=== PATIENT | female | born 1935 | race Caucasian/White ===

== ENCOUNTER 2022-05-22 17:56 | Inpatient (IN) | payer OTHER, MEDICARE ==
[2022-05-22 20:10] LABS: BASO % 0.6 % (0-2.0); EOS % 1.1 % (0-4.5); HEMATOCRIT 42.9 % (32.4-45.2); HEMOGLOBIN 13.8 GM/dL (10.7-15.3); LYMPH % 16.2 % (8-40); MCH 28.8 pg (25.7-33.7); MCHC 32.1 g/dl (32.0-36.0); MEAN CELL VOLUME 89.7 fl (80-96); MEAN PLT VOLUME 9.3 fl (7.5-11.1); MONO % 6.1 % (3.8-10.2); PLATELET COUNT 241 10^3/uL (134-434); RBC 4.78 M/mm3 (3.60-5.2); RDW 13.8 % (11.6-15.6); WHITE BLOOD COUNT 7.8 K/mm3 (4.0-10.0)
[2022-05-22 20:29] LABS: CALCIUM 9.4 mg/dL (8.5-10.1)
[2022-05-22 20:30] LABS: ALBUMIN 3.5 g/dl (3.4-5.0)
[2022-05-22 20:33] LABS: CREATININE 0.7 mg/dL (0.55-1.3)
[2022-05-22 20:35] LABS: BILIRUBIN,TOTAL 0.3 mg/dL (0.2-1); TOT PROT 6.8 g/dl (6.4-8.2)
[2022-05-22] MEDS ORDERED: HALOPERIDOL LACTATE 5 MG/ML IM ONE ×2 (23:38→23:57)
[2022-05-22] MEDS ORDERED: LOSARTAN POTASSIUM 50 MG TABLET PO PRN ×2 (23:41→23:45)
[2022-05-22] MEDS ORDERED: LOSARTAN POTASSIUM 50 MG TABLET PO SCH (23:44)
[2022-05-22] MEDS ORDERED: PANTOPRAZOLE 40 MG TABLET PO ONE (23:57)
[2022-05-22] MEDS ORDERED: ENOXAPARIN NA (PORCINE) 40 MG/0.4 ML DISP.SYRIN SQ ONE (23:57)
[2022-05-22 23:58] LABS: URINE APPEARANCE CLEAR; URINE BILIRUBIN NEGATIVE (NEGATIVE); URINE COLOR YELLOW; URINE GLUCOSE (UA) NEGATIVE (NEGATIVE); URINE KETONE TRACE (NEGATIVE); URINE LEUK ESTERASE NEGATIVE (NEGATIVE); URINE NITRITE NEGATIVE (NEGATIVE); URINE PROTEIN NEGATIVE (NEGATIVE); URINE UROBILINOGEN 0.2 mg/dL (0.2-1.0)
[2022-05-23] MEDS: PANTOPRAZOLE 40 MG TABLET PO SCH ×2 (00:10→09:41)
[2022-05-23] MEDS: ENOXAPARIN NA (PORCINE) 40 MG/0.4 ML DISP.SYRIN SQ SCH ×2 (00:11→09:40)
[2022-05-23 04:59] VITALS: BMI 24.4
[2022-05-23] MEDS: LOSARTAN POTASSIUM 50 MG TABLET PO SCH ×2 (09:35→22:07)
[2022-05-23] MEDS: amLODIPine BESYLATE 10 MG TABLET (FP) PO SCH (09:38)
[2022-05-23] MEDS ORDERED: amLODIPine BESYLATE 5 MG TABLET (FP) PO SCH (10:00)
[2022-05-23] MEDS ORDERED: LOSARTAN POTASSIUM 50 MG TABLET PO SCH (10:00)
[2022-05-23] MEDS: LORazepam 2 MG/ML SDV VIAL IVPUSH PRN ×2 (10:45→22:06)
[2022-05-23 15:48] VITALS: RESP 20
[2022-05-23] MEDS ORDERED: DOCUSATE SODIUM 100 MG CAPSULE (FP) PO SCH (22:00)
[2022-05-24 11:01] LABS: BASO % 0.6 % (0-2.0); EOS % 1.8 % (0-4.5); HEMATOCRIT 42.3 % (32.4-45.2); HEMOGLOBIN 13.8 GM/dL (10.7-15.3); LYMPH % 20.3 % (8-40); MCHC 32.5 g/dl (32.0-36.0); MEAN CELL VOLUME 89.1 fl (80-96); MEAN PLT VOLUME 9.4 fl (7.5-11.1); MONO % 10.1 % (3.8-10.2); NEUT % 67.2 % (42.8-82.8); PLATELET COUNT 258 10^3/uL (134-434); RBC 4.75 M/mm3 (3.60-5.2); RDW 13.7 % (11.6-15.6); WHITE BLOOD COUNT 6.3 K/mm3 (4.0-10.0)
[2022-05-24 11:23] LABS: CALCIUM 9.4 mg/dL (8.5-10.1)
[2022-05-24 11:27] LABS: CREATININE 0.6 mg/dL (0.55-1.3)
[2022-05-24] MEDS: PANTOPRAZOLE 40 MG TABLET PO SCH (12:22)
[2022-05-24] MEDS: amLODIPine BESYLATE 10 MG TABLET (FP) PO SCH (12:22)
[2022-05-24] MEDS: LOSARTAN POTASSIUM 50 MG TABLET PO SCH (12:22)
[2022-05-24] MEDS: ENOXAPARIN NA (PORCINE) 40 MG/0.4 ML DISP.SYRIN SQ SCH (12:22)
[2022-05-24 14:18] VITALS: BP 133/77; PULSE 63; TEMP 97.8
== END 2022-05-24 14:51 | disposition home or self-care (01) | DRG 305 ==
LOC: JER 17:56 → JERBED 23:41 → J8W 05-23 03:24
PROVIDERS: ADMIT Internal Medicine; ATTEND Internal Medicine
DX: I16.0 Hypertensive urgency (principal); F03.90 Unspecified dementia, unspecified severity, without behavioral disturbance, psychotic disturbance, mood disturbance, and anxiety; R26.9 Unspecified abnormalities of gait and mobility; M62.81 Muscle weakness (generalized); R79.89 Other specified abnormal findings of blood chemistry; R42 Dizziness and giddiness; I44.0 Atrioventricular block, first degree; Z86.73 Personal history of transient ischemic attack (TIA), and cerebral infarction without residual deficits
CPT/HCPCS: 0241U-QW; 36415; 70450-TC; 80048; 80053; 81003; 84484; 85025; 87086; 93005; 93010; 97116-GP; 99285-25

== ENCOUNTER 2023-03-04 19:00 | Inpatient (IN) | payer OTHER, MEDICARE ==
[2023-03-04 20:28] LABS: BASO % 0.8 % (0-2.0); EOS % 1.8 % (0-4.5); HEMATOCRIT 40.7 % (32.4-45.2); HEMOGLOBIN 13.6 GM/dL (10.7-15.3); LYMPH % 18.9 % (8-40); MCH 29.4 pg (25.7-33.7); MCHC 33.4 g/dl (32.0-36.0); MEAN CELL VOLUME 87.9 fl (80-96); MEAN PLT VOLUME 9.1 fl (7.5-11.1); MONO % 10.2 % (3.8-10.2); NEUT % 68.3 % (42.8-82.8); PLATELET COUNT 255 10^3/uL (134-434); RBC 4.63 M/mm3 (3.60-5.2); RDW 15.1 % (11.6-15.6); WHITE BLOOD COUNT 6.8 K/mm3 (4.0-10.0)
[2023-03-04 20:36] LABS: INR 1.15 (0.83-1.09); PROTHROMBIN TIME (PATIENT) 13.3 SEC (9.7-13.0)
[2023-03-04 21:00] LABS: POTASSIUM 4.8 mmol/L (3.5-5.1)
[2023-03-04 21:03] LABS: ALBUMIN 3.1 g/dl (3.4-5.0); BLOOD UREA NITROGEN 18.9 mg/dL (7-18); CALCIUM 8.8 mg/dL (8.5-10.1); MAGNESIUM 2.1 mg/dL (1.8-2.4)
[2023-03-04 21:06] LABS: CREATININE 0.7 mg/dL (0.55-1.3)
[2023-03-04 21:08] LABS: BILIRUBIN,TOTAL 0.2 mg/dL (0.2-1); TOT PROT 6.3 g/dl (6.4-8.2)
[2023-03-04] MEDS ORDERED: SODIUM CHLORIDE 0.9% 500 ML INFUS.BAG IV ONE (21:41)
[2023-03-04 22:52] LABS: EPI CELLS 5 /uL (0-25.1); HYALINE CASTS 0 /uL (0-3.1); PH,URINE 7.5 (5.0-8.0); URINE APPEARANCE CLEAR; URINE BACTERIA 5 /uL (0-1359); URINE BILIRUBIN NEGATIVE (NEGATIVE); URINE COLOR YELLOW; URINE GLUCOSE (UA) NEGATIVE (NEGATIVE); URINE KETONE NEGATIVE (NEGATIVE); URINE LEUK ESTERASE TRACE (NEGATIVE); URINE NITRITE NEGATIVE (NEGATIVE); URINE PROTEIN NEGATIVE (NEGATIVE); URINE RBC 13 /uL (0-23.9); URINE WBC 28 /uL (0-25.8)
[2023-03-04] MEDS ORDERED: ACETAMINOPHEN 325 MG TABLET (FP) PO PRN (23:33)
[2023-03-04] MEDS ORDERED: PANTOPRAZOLE 40 MG TABLET PO ONE (23:49)
[2023-03-04] MEDS ORDERED: levETIRAcetam 500 MG/5 ML INJECTION VIAL IVPB ONE (23:49)
[2023-03-04] MEDS: levETIRAcetam 500 MG/5 ML INJECTION VIAL IVPB SCH (23:56)
[2023-03-04] MEDS: PANTOPRAZOLE 40 MG TABLET PO SCH (23:56)
[2023-03-05 03:43] VITALS: BMI 24.5
[2023-03-05] MEDS: PANTOPRAZOLE 40 MG TABLET PO SCH (06:02)
[2023-03-05] MEDS: levETIRAcetam 500 MG/5 ML INJECTION VIAL IVPB SCH (09:29)
[2023-03-05] MEDS: amLODIPine BESYLATE 10 MG TABLET (FP) PO SCH (09:29)
[2023-03-05] MEDS: LOSARTAN POTASSIUM 50 MG TABLET PO SCH ×2 (09:29→22:19)
[2023-03-05] MEDS: HEPARIN NA (PORCINE) 5,000 UNITS/ML 1ML VIAL SQ SCH ×2 (09:30→22:19)
[2023-03-05 17:47] LABS: IRON SERUM 46 ug/dL (50-175)
[2023-03-05 17:48] LABS: TOTAL IRON BINDING CAPACITY 234 ug/dL (250-450)
[2023-03-05] MEDS: PRAMIPEXOLE DIHYDROCHLORIDE 0.125 MG TABLET PO SCH (22:19)
[2023-03-06] MEDS: PANTOPRAZOLE 40 MG TABLET PO SCH (07:41)
[2023-03-06 09:29] LABS: BASO % 0.5 % (0-2.0); EOS % 1.2 % (0-4.5); HEMATOCRIT 40.9 % (32.4-45.2); HEMOGLOBIN 13.5 GM/dL (10.7-15.3); LYMPH % 25.1 % (8-40); MCH 29.5 pg (25.7-33.7); MCHC 33.1 g/dl (32.0-36.0); MEAN CELL VOLUME 89.1 fl (80-96); MEAN PLT VOLUME 9.3 fl (7.5-11.1); MONO % 9.9 % (3.8-10.2); NEUT % 63.3 % (42.8-82.8); PLATELET COUNT 254 10^3/uL (134-434); RDW 14.6 % (11.6-15.6); WHITE BLOOD COUNT 7.7 K/mm3 (4.0-10.0)
[2023-03-06] MEDS: LOSARTAN POTASSIUM 50 MG TABLET PO SCH (10:11)
[2023-03-06] MEDS: amLODIPine BESYLATE 10 MG TABLET (FP) PO SCH (10:11)
[2023-03-06] MEDS: HEPARIN NA (PORCINE) 5,000 UNITS/ML 1ML VIAL SQ SCH ×2 (10:14→21:53)
[2023-03-06] MEDS ORDERED: LACTATED RINGERS SOLUTION 1,000 ML/1,000 ML INFUS.BAG IV SCH (18:30)
[2023-03-06] MEDS: PRAMIPEXOLE DIHYDROCHLORIDE 0.125 MG TABLET PO SCH (21:53)
[2023-03-07] MEDS ORDERED: LACTATED RINGERS SOLUTION 1,000 ML/1,000 ML INFUS.BAG IV SCH ×2 (00:45→06:06)
[2023-03-07] MEDS: HEPARIN NA (PORCINE) 5,000 UNITS/ML 1ML VIAL SQ SCH ×3 (05:25→21:44)
[2023-03-07] MEDS: PANTOPRAZOLE 40 MG TABLET PO SCH (06:45)
[2023-03-07 09:52] LABS: BASO % 0.7 % (0-2.0); HEMATOCRIT 35.8 % (32.4-45.2); HEMOGLOBIN 11.6 GM/dL (10.7-15.3); LYMPH % 24.5 % (8-40); MCH 29.1 pg (25.7-33.7); MCHC 32.5 g/dl (32.0-36.0); MEAN CELL VOLUME 89.5 fl (80-96); MEAN PLT VOLUME 9.2 fl (7.5-11.1); MONO % 12.8 % (3.8-10.2); PLATELET COUNT 221 10^3/uL (134-434); RBC 3.99 M/mm3 (3.60-5.2); RDW 14.9 % (11.6-15.6); WHITE BLOOD COUNT 6.6 K/mm3 (4.0-10.0)
[2023-03-07 10:16] LABS: POTASSIUM 4.2 mmol/L (3.5-5.1)
[2023-03-07 10:25] LABS: CREATININE 0.6 mg/dL (0.55-1.3)
[2023-03-07 10:26] LABS: ALBUMIN 2.6 g/dl (3.4-5.0); CALCIUM 8.4 mg/dL (8.5-10.1); PHOSPHOROUS 3.4 mg/dL (2.5-4.9); TOT PROT 5.3 g/dl (6.4-8.2)
[2023-03-07 10:27] LABS: BILIRUBIN,TOTAL 0.2 mg/dL (0.2-1); BLOOD UREA NITROGEN 14.7 mg/dL (7-18)
[2023-03-07] MEDS: PRAMIPEXOLE DIHYDROCHLORIDE 0.125 MG TABLET PO SCH (21:44)
[2023-03-08] MEDS: PANTOPRAZOLE 40 MG TABLET PO SCH (06:04)
[2023-03-08] MEDS: HEPARIN NA (PORCINE) 5,000 UNITS/ML 1ML VIAL SQ SCH ×3 (06:04→22:08)
[2023-03-08] MEDS: PRAMIPEXOLE DIHYDROCHLORIDE 0.125 MG TABLET PO SCH (22:07)
[2023-03-09] MEDS: HEPARIN NA (PORCINE) 5,000 UNITS/ML 1ML VIAL SQ SCH (06:32)
[2023-03-09] MEDS: PANTOPRAZOLE 40 MG TABLET PO SCH (06:34)
[2023-03-09 10:21] VITALS: BP 101/64; PULSE 86; RESP 17; TEMP 98
== END 2023-03-09 12:50 | disposition home or self-care (01) | DRG 57 ==
LOC: JER 19:00 → JERBED 23:19 → OBSVTOIN 23:22 → JERBED 03-05 01:37 → J8W 03-05 03:46
PROVIDERS: ADMIT Internal Medicine; ATTEND Internal Medicine
DX: G25.81 Restless legs syndrome (principal); J98.11 Atelectasis; I10 Essential (primary) hypertension; M48.02 Spinal stenosis, cervical region; G30.9 Alzheimer's disease, unspecified; F02.80 Dementia in other diseases classified elsewhere, unspecified severity, without behavioral disturbance, psychotic disturbance, mood disturbance, and anxiety; I44.0 Atrioventricular block, first degree; R26.81 Unsteadiness on feet; M62.81 Muscle weakness (generalized); E77.8 Other disorders of glycoprotein metabolism; E88.09 Other disorders of plasma-protein metabolism, not elsewhere classified; I95.9 Hypotension, unspecified; M54.50 Low back pain, unspecified; R09.02 Hypoxemia
CPT/HCPCS: 0241U-QW; 36415; 70450-TC; 71045-TC-FY; 71275-TC; 80053; 81003; 82728; 83540; 83550; 83605; 83735; 84100; 84443; 84484; 85025; 85379; 85610; 85730; 86850; 86900; 86901; 87086; 87635; 93005; 93010; 93970-TC; 94761; 97116-GP; 99285-25; G0378; J1644; Q9967

== ENCOUNTER 2023-03-11 16:01 | Emergency (ER) | payer OTHER, MEDICARE ==
[2023-03-11 16:19] VITALS: TEMP 98.7; BMI 23.4
[2023-03-11] MEDS ORDERED: ACETAMINOPHEN 1000 MG/100 ML BAG IVPB ONE (17:06)
[2023-03-11 17:14] LABS: BASO % 0.7 % (0-2.0); EOS % 2.3 % (0-4.5); HEMATOCRIT 38.9 % (32.4-45.2); HEMOGLOBIN 12.8 GM/dL (10.7-15.3); LYMPH % 15.8 % (8-40); MCH 29.2 pg (25.7-33.7); MCHC 32.9 g/dl (32.0-36.0); MEAN CELL VOLUME 88.5 fl (80-96); MONO % 10.3 % (3.8-10.2); NEUT % 70.9 % (42.8-82.8); PLATELET COUNT 283 10^3/uL (134-434); RDW 15.2 % (11.6-15.6); WHITE BLOOD COUNT 7.5 K/mm3 (4.0-10.0)
[2023-03-11] MEDS ORDERED: ACETAMINOPHEN INJECTION 100 ML IVPB ONE (17:15)
[2023-03-11] MEDS ORDERED: LIDOCAINE 5% TOPICAL PATCH TP ONE (17:18)
[2023-03-11 17:21] LABS: INR 1.04 (0.83-1.09); PROTHROMBIN TIME (PATIENT) 12.1 SEC (9.7-13.0)
[2023-03-11] MEDS ORDERED: LIDOCAINE 4% PATCH TP ONE (17:21)
[2023-03-11 17:23] LABS: ACTIVATED PTT 29.9 SECONDS (25.2-36.5)
[2023-03-11 17:33] LABS: POTASSIUM 4.5 mmol/L (3.5-5.1)
[2023-03-11 17:35] LABS: CALCIUM 8.8 mg/dL (8.5-10.1)
[2023-03-11 17:36] LABS: BLOOD UREA NITROGEN 16.1 mg/dL (7-18); MAGNESIUM 2.1 mg/dL (1.8-2.4)
[2023-03-11 17:39] LABS: CREATININE 0.8 mg/dL (0.55-1.3)
[2023-03-11 17:40] LABS: BILIRUBIN,TOTAL 0.1 mg/dL (0.2-1); TOT PROT 6.2 g/dl (6.4-8.2)
[2023-03-11] MEDS ORDERED: LIDOCAINE PATCH REMOVAL MC SCH (22:00)
[2023-03-12 02:28] VITALS: BP 147/92; PULSE 72; RESP 18
== END 2023-03-12 05:20 ==
LOC: JER 16:01
PROC: 3E033NZ Introduction of Analgesics, Hypnotics, Sedatives into Peripheral Vein, Percutaneous Approach (ICD-10-PCS; principal; 2023-03-11)
DX: S46.819A Strain of other muscles, fascia and tendons at shoulder and upper arm level, unspecified arm, initial encounter (principal); S09.90XA Unspecified injury of head, initial encounter; M54.2 Cervicalgia; E04.1 Nontoxic single thyroid nodule; R74.01 Elevation of levels of liver transaminase levels; W01.198A Fall on same level from slipping, tripping and stumbling with subsequent striking against other object, initial encounter; Z20.822 Contact with and (suspected) exposure to COVID-19
CPT/HCPCS: 0241U-QW; 36415; 70450-TC; 71045-TC-FY; 72125-TC; 80053; 83735; 84484; 85025; 85610; 85730; 93005; 93010; 99285-25

== ENCOUNTER 2023-04-30 10:14 | Emergency (ER) | payer OTHER, MEDICARE ==
[2023-04-30 10:36] VITALS: PULSE 83; TEMP 98.1; BMI 23.7
[2023-04-30 11:18] LABS: BASO % 0.6 % (0-2.0); EOS % 0.9 % (0-4.5); HEMATOCRIT 40.5 % (32.4-45.2); HEMOGLOBIN 13.4 GM/dL (10.7-15.3); MCH 29.4 pg (25.7-33.7); MCHC 33.1 g/dl (32.0-36.0); MEAN CELL VOLUME 88.9 fl (80-96); MEAN PLT VOLUME 9.2 fl (7.5-11.1); MONO % 9.3 % (3.8-10.2); NEUT % 73.2 % (42.8-82.8); PLATELET COUNT 233 10^3/uL (134-434); RBC 4.56 M/mm3 (3.60-5.2); WHITE BLOOD COUNT 6.7 K/mm3 (4.0-10.0)
[2023-04-30 11:29] LABS: INR 1.22 (0.83-1.09); PROTHROMBIN TIME (PATIENT) 14.1 SEC (9.7-13.0)
[2023-04-30 11:32] LABS: ACTIVATED PTT 31.5 SECONDS (25.2-36.5)
[2023-04-30 11:39] LABS: POTASSIUM 4.6 mmol/L (3.5-5.1)
[2023-04-30 11:41] LABS: BLOOD UREA NITROGEN 19.9 mg/dL (7-18)
[2023-04-30 11:44] LABS: CREATININE 0.8 mg/dL (0.55-1.3)
[2023-04-30 11:46] LABS: BILIRUBIN,TOTAL 0.3 mg/dL (0.2-1); TOT PROT 6.1 g/dl (6.4-8.2)
[2023-04-30 11:50] LABS: URINE APPEARANCE CLEAR; URINE BILIRUBIN NEGATIVE (NEGATIVE); URINE COLOR YELLOW; URINE GLUCOSE (UA) NEGATIVE (NEGATIVE); URINE KETONE 1+ (NEGATIVE); URINE LEUK ESTERASE NEGATIVE (NEGATIVE); URINE NITRITE NEGATIVE (NEGATIVE); URINE PROTEIN TRACE (NEGATIVE); URINE UROBILINOGEN 0.2 mg/dL (0.2-1.0)
[2023-04-30] MEDS ORDERED: SODIUM CHLORIDE 0.9% 500 ML INFUS.BAG IV ONE (12:35)
[2023-04-30 13:28] VITALS: BP 121/85; RESP 13
== END 2023-04-30 17:57 | disposition home or self-care (01) ==
LOC: JER 10:14
DX: Z04.3 Encounter for examination and observation following other accident (principal); W19.XXXA Unspecified fall, initial encounter; Z20.822 Contact with and (suspected) exposure to COVID-19
CPT/HCPCS: 0241U-QW; 36415; 70450-TC; 71045-TC-FY; 72125-TC; 72170-TC-FY; 80053; 81003; 82550; 83735; 84484; 85025; 85610; 85730; 86850; 86900; 86901; 87086; 93005; 93010; 99285-25

== ENCOUNTER 2023-05-12 08:19 | Inpatient (IN) | payer OTHER, MEDICARE ==
[2023-05-12] MEDS ORDERED: ACETAMINOPHEN 1000 MG/100 ML BAG IVPB ONE (08:59)
[2023-05-12 09:01] VITALS: BMI 20.7
[2023-05-12] MEDS ORDERED: ACETAMINOPHEN INJECTION 100 ML IVPB ONE (09:06)
[2023-05-12 09:45] LABS: BASO % 0.5 % (0-2.0); EOS % 0.1 % (0-4.5); HEMATOCRIT 41.2 % (32.4-45.2); HEMOGLOBIN 13.2 GM/dL (10.7-15.3); LYMPH % 12.1 % (8-40); MCH 29.2 pg (25.7-33.7); MCHC 31.9 g/dl (32.0-36.0); MEAN CELL VOLUME 91.4 fl (80-96); MEAN PLT VOLUME 9.3 fl (7.5-11.1); MONO % 12.7 % (3.8-10.2); NEUT % 74.6 % (42.8-82.8); PLATELET COUNT 279 10^3/uL (134-434); RBC 4.51 M/mm3 (3.60-5.2); WHITE BLOOD COUNT 12.1 K/mm3 (4.0-10.0)
[2023-05-12 10:04] LABS: POTASSIUM 4.2 mmol/L (3.5-5.1)
[2023-05-12 10:08] LABS: ALBUMIN 2.9 g/dl (3.4-5.0); BLOOD UREA NITROGEN 25.2 mg/dL (7-18); INR 1.16 (0.83-1.09); PROTHROMBIN TIME (PATIENT) 13.4 SEC (9.7-13.0)
[2023-05-12 10:11] LABS: ACTIVATED PTT 29.8 SECONDS (25.2-36.5); CREATININE 0.8 mg/dL (0.55-1.3)
[2023-05-12 10:12] LABS: BILIRUBIN,TOTAL 0.6 mg/dL (0.2-1); TOT PROT 6.4 g/dl (6.4-8.2)
[2023-05-12] MEDS ORDERED: PANTOPRAZOLE 40 MG TABLET PO ONE (13:22)
[2023-05-12] MEDS: PANTOPRAZOLE 40 MG TABLET PO SCH (13:25)
[2023-05-12] MEDS: D5-1/2NS+10 MEQ KCL - 10 MEQ/1,000 ML INFUS.BAG IV SCH (14:13)
[2023-05-12] MEDS: MUPIROCIN 2% TOPICAL OINTMENT 22 GM TUBE TP SCH ×2 (15:05→22:11)
[2023-05-12 15:37] LABS: EPI CELLS 4 /uL (0-25.1); HYALINE CASTS 0 /uL (0-3.1); PH,URINE 5.5 (5.0-8.0); URINE APPEARANCE TURBID; URINE BACTERIA >9,000 /uL (0-1359); URINE BILIRUBIN NEGATIVE (NEGATIVE); URINE COLOR YELLOW; URINE GLUCOSE (UA) NEGATIVE (NEGATIVE); URINE KETONE 1+ (NEGATIVE); URINE LEUK ESTERASE 2+ (NEGATIVE); URINE NITRITE POSITIVE (NEGATIVE); URINE PROTEIN 3+ (NEGATIVE); URINE UROBILINOGEN 0.2 mg/dL (0.2-1.0); URINE WBC 9989 /uL (0-25.8)
[2023-05-12 15:53] LABS: URINE RBC 439.8 /uL (0-23.9)
[2023-05-12] MEDS ORDERED: CEFTRIAXONE 1 GM in DEXTROSE 5%-WATER - 100 ML IVPB ONE (16:02)
[2023-05-12] MEDS ORDERED: CEFTRIAXONE 1 GM/50 ML BAG ONE (16:09)
[2023-05-12] MEDS: PRAMIPEXOLE DIHYDROCHLORIDE 0.125 MG TABLET PO SCH (22:11)
[2023-05-13 08:00] LABS: BASO % 0.5 % (0-2.0); EOS % 0.5 % (0-4.5); HEMATOCRIT 38.4 % (32.4-45.2); HEMOGLOBIN 12.4 GM/dL (10.7-15.3); LYMPH % 11.3 % (8-40); MCH 29.4 pg (25.7-33.7); MCHC 32.2 g/dl (32.0-36.0); MEAN CELL VOLUME 91.2 fl (80-96); MEAN PLT VOLUME 9.7 fl (7.5-11.1); NEUT % 74.7 % (42.8-82.8); PLATELET COUNT 237 10^3/uL (134-434); RBC 4.21 M/mm3 (3.60-5.2); RDW 13.5 % (11.6-15.6); WHITE BLOOD COUNT 9.9 K/mm3 (4.0-10.0)
[2023-05-13 08:29] LABS: POTASSIUM 3.9 mmol/L (3.5-5.1)
[2023-05-13 08:30] LABS: CALCIUM 8.4 mg/dL (8.5-10.1)
[2023-05-13 08:31] LABS: BLOOD UREA NITROGEN 22.7 mg/dL (7-18)
[2023-05-13 08:34] LABS: CREATININE 0.7 mg/dL (0.55-1.3)
[2023-05-13] MEDS: PANTOPRAZOLE 40 MG TABLET PO SCH (09:58)
[2023-05-13] MEDS: MUPIROCIN 2% TOPICAL OINTMENT 22 GM TUBE TP SCH ×2 (10:01→21:10)
[2023-05-13] MEDS: CEFTRIAXONE 1 GM in DEXTROSE 5%-WATER - 50 ML IVPB SCH (12:12)
[2023-05-13] MEDS: D5-1/2NS+10 MEQ KCL - 10 MEQ/1,000 ML INFUS.BAG IV SCH (18:51)
[2023-05-13] MEDS: PRAMIPEXOLE DIHYDROCHLORIDE 0.125 MG TABLET PO SCH (21:11)
[2023-05-14 07:08] LABS: BASO % 0.5 % (0-2.0); EOS % 2.5 % (0-4.5); HEMATOCRIT 37.7 % (32.4-45.2); HEMOGLOBIN 12.3 GM/dL (10.7-15.3); LYMPH % 16.4 % (8-40); MCH 29.8 pg (25.7-33.7); MCHC 32.6 g/dl (32.0-36.0); MEAN CELL VOLUME 91.5 fl (80-96); MEAN PLT VOLUME 9.6 fl (7.5-11.1); MONO % 13.8 % (3.8-10.2); NEUT % 66.8 % (42.8-82.8); PLATELET COUNT 222 10^3/uL (134-434); RBC 4.12 M/mm3 (3.60-5.2); RDW 13.6 % (11.6-15.6); WHITE BLOOD COUNT 7.2 K/mm3 (4.0-10.0)
[2023-05-14 07:21] LABS: POTASSIUM 3.9 mmol/L (3.5-5.1)
[2023-05-14 07:25] LABS: CALCIUM 8.6 mg/dL (8.5-10.1)
[2023-05-14 07:27] LABS: BLOOD UREA NITROGEN 16.9 mg/dL (7-18)
[2023-05-14 07:29] LABS: CREATININE 0.6 mg/dL (0.55-1.3)
[2023-05-14] MEDS: PANTOPRAZOLE 40 MG TABLET PO SCH (10:42)
[2023-05-14] MEDS: CEFTRIAXONE 1 GM in DEXTROSE 5%-WATER - 50 ML IVPB SCH (10:43)
[2023-05-14] MEDS: MUPIROCIN 2% TOPICAL OINTMENT 22 GM TUBE TP SCH ×2 (10:48→21:22)
[2023-05-14] MEDS: HEPARIN NA (PORCINE) 5,000 UNITS/ML 1ML VIAL SQ SCH ×2 (14:08→21:21)
[2023-05-14] MEDS: D5-1/2NS+10 MEQ KCL - 10 MEQ/1,000 ML INFUS.BAG IV SCH (16:36)
[2023-05-14] MEDS: PRAMIPEXOLE DIHYDROCHLORIDE 0.125 MG TABLET PO SCH (21:21)
[2023-05-15] MEDS: HEPARIN NA (PORCINE) 5,000 UNITS/ML 1ML VIAL SQ SCH ×3 (05:42→21:06)
[2023-05-15 06:47] LABS: BASO % 0.7 % (0-2.0); EOS % 2.6 % (0-4.5); HEMATOCRIT 36.1 % (32.4-45.2); LYMPH % 19.5 % (8-40); MCH 30.3 pg (25.7-33.7); MCHC 33.3 g/dl (32.0-36.0); MEAN CELL VOLUME 91.2 fl (80-96); MEAN PLT VOLUME 9.3 fl (7.5-11.1); MONO % 11.7 % (3.8-10.2); NEUT % 65.5 % (42.8-82.8); PLATELET COUNT 258 10^3/uL (134-434); RBC 3.95 M/mm3 (3.60-5.2); RDW 13.5 % (11.6-15.6); WHITE BLOOD COUNT 7.7 K/mm3 (4.0-10.0)
[2023-05-15 07:00] LABS: POTASSIUM 4.1 mmol/L (3.5-5.1)
[2023-05-15 07:02] LABS: CALCIUM 8.4 mg/dL (8.5-10.1)
[2023-05-15 07:03] LABS: BLOOD UREA NITROGEN 17.6 mg/dL (7-18)
[2023-05-15 07:07] LABS: CREATININE 0.7 mg/dL (0.55-1.3)
[2023-05-15] MEDS: CEFTRIAXONE 1 GM in DEXTROSE 5%-WATER - 50 ML IVPB SCH (10:01)
[2023-05-15] MEDS: MUPIROCIN 2% TOPICAL OINTMENT 22 GM TUBE TP SCH ×2 (10:02→21:08)
[2023-05-15] MEDS: PANTOPRAZOLE 40 MG TABLET PO SCH (10:02)
[2023-05-15] MEDS: PRAMIPEXOLE DIHYDROCHLORIDE 0.125 MG TABLET PO SCH (21:07)
[2023-05-16] MEDS: HEPARIN NA (PORCINE) 5,000 UNITS/ML 1ML VIAL SQ SCH (05:53)
[2023-05-16 06:16] VITALS: RESP 20
[2023-05-16] MEDS: MUPIROCIN 2% TOPICAL OINTMENT 22 GM TUBE TP SCH (09:15)
[2023-05-16] MEDS: PANTOPRAZOLE 40 MG TABLET PO SCH (09:16)
[2023-05-16] MEDS: CEFTRIAXONE 1 GM in DEXTROSE 5%-WATER - 50 ML IVPB SCH (09:16)
[2023-05-16 15:10] VITALS: BP 145/77; PULSE 98; TEMP 98.5
[2023-05-17] MEDS ORDERED: CEFUROXIME AXETIL 250 MG TABLET PO SCH (10:00)
== END 2023-05-16 18:49 | DRG 312 ==
LOC: JER 08:19 → JERBED 11:42 → OBSVTOIN 13:02 → J4W 18:53
PROVIDERS: ADMIT Internal Medicine; ATTEND Internal Medicine
DX: R55 Syncope and collapse (principal); N39.0 Urinary tract infection, site not specified; G30.9 Alzheimer's disease, unspecified; F02.80 Dementia in other diseases classified elsewhere, unspecified severity, without behavioral disturbance, psychotic disturbance, mood disturbance, and anxiety; I10 Essential (primary) hypertension; E86.0 Dehydration; S80.212A Abrasion, left knee, initial encounter; S70.02XA Contusion of left hip, initial encounter; E88.09 Other disorders of plasma-protein metabolism, not elsewhere classified; R56.9 Unspecified convulsions; W19.XXXA Unspecified fall, initial encounter; Y93.9 Activity, unspecified; Y92.89 Other specified places as the place of occurrence of the external cause; Y99.9 Unspecified external cause status
CPT/HCPCS: 0241U-QW; 36415; 70450-TC; 70486-TC; 71045-TC-FY; 72125-TC; 72170-TC-FY; 73502-TC-LT-FY; 80048; 80053; 80164; 81003; 82550; 82553; 83735; 84484; 85025; 85610; 85730; 86850; 86900; 86901; 87040; 87086; 87186; 87635; 93005; 93010; 97116-GP; 97162-GP; 99285-25; G0378; J1644

== ENCOUNTER 2023-07-06 08:39 | Emergency (ER) | payer OTHER, MEDICARE ==
[2023-07-06 09:30] VITALS: PULSE 101; BMI 23.3
[2023-07-06] MEDS ORDERED: SODIUM CHLORIDE 0.9% 500 ML INFUS.BAG IV ONE (09:43)
[2023-07-06 11:09] LABS: HEMATOCRIT 45.2 % (32.4-45.2); HEMOGLOBIN 14.9 GM/dL (10.7-15.3); MCH 29.8 pg (25.7-33.7); MCHC 32.9 g/dl (32.0-36.0); MEAN CELL VOLUME 90.4 fl (80-96); MEAN PLT VOLUME 9.8 fl (7.5-11.1); PLATELET COUNT 251 10^3/uL (134-434); RBC 4.99 M/mm3 (3.60-5.2); WHITE BLOOD COUNT 9.5 K/mm3 (4.0-10.0)
[2023-07-06 11:10] LABS: INR 1.12 (0.83-1.09)
[2023-07-06 11:13] LABS: ACTIVATED PTT 22.9 SECONDS (25.2-36.5)
[2023-07-06 11:18] LABS: POTASSIUM 4.4 mmol/L (3.5-5.1)
[2023-07-06 11:22] LABS: ALBUMIN 3.3 g/dl (3.4-5.0); BLOOD UREA NITROGEN 32.2 mg/dL (7-18); CALCIUM 9.6 mg/dL (8.5-10.1)
[2023-07-06 11:25] LABS: CREATININE 0.7 mg/dL (0.55-1.3)
[2023-07-06 11:26] LABS: TOT PROT 6.8 g/dl (6.4-8.2)
[2023-07-06 11:27] LABS: BILIRUBIN,TOTAL 0.5 mg/dL (0.2-1)
[2023-07-06 12:00] LABS: ANISOCYTOSIS 0; HELMET CELLS 0; HOWELL-JOLLY BODIES 0; MACROCYTOSIS 0; OVALOCYTE 0; ROULEAU 0; SICKELED CELLS 0; TARGET CELLS 0; TEAR DROP CELLS 0; TOXIC GRANULATION 0
[2023-07-06 16:44] LABS: URINE APPEARANCE Clear; URINE BILIRUBIN Negative (NEGATIVE); URINE COLOR Yellow; URINE GLUCOSE (UA) Negative (NEGATIVE); URINE KETONE Negative (NEGATIVE); URINE LEUK ESTERASE Negative (NEGATIVE); URINE NITRITE Negative (NEGATIVE); URINE PROTEIN NEGATIVE (NEGATIVE)
[2023-07-06 17:44] VITALS: BP 100/71; RESP 16; TEMP 98.5
== END 2023-07-06 21:24 ==
LOC: JER 08:39
PROC: 0T9B70Z Drainage of Bladder with Drainage Device, Via Natural or Artificial Opening (ICD-10-PCS; principal; 2023-07-06)
DX: R11.2 Nausea with vomiting, unspecified (principal); R10.9 Unspecified abdominal pain; Z20.822 Contact with and (suspected) exposure to COVID-19
CPT/HCPCS: 0241U-QW; 36415; 74177-TC; 80053; 81003; 83605; 83690; 84484; 85025; 85610; 85730; 86850; 86900; 86901; 87086; 93005; 93010; 99285-25; Q9967

== ENCOUNTER 2023-08-10 15:12 | Emergency (ER) | payer OTHER, MEDICARE ==
[2023-08-10 16:38] VITALS: TEMP 97.8; BMI 25.7
[2023-08-10 18:10] LABS: BASO % 1.1 % (0-2.0); EOS % 1.8 % (0-4.5); HEMATOCRIT 39.5 % (32.4-45.2); HEMOGLOBIN 13.3 GM/dL (10.7-15.3); LYMPH % 19.4 % (8-40); MCH 29.7 pg (25.7-33.7); MCHC 33.7 g/dl (32.0-36.0); MEAN CELL VOLUME 88.3 fl (80-96); MEAN PLT VOLUME 9.4 fl (7.5-11.1); MONO % 9.4 % (3.8-10.2); NEUT % 68.3 % (42.8-82.8); PLATELET COUNT 262 10^3/uL (134-434); RBC 4.47 M/mm3 (3.60-5.2); WHITE BLOOD COUNT 7.2 K/mm3 (4.0-10.0)
[2023-08-10 18:21] LABS: ACTIVATED PTT 29.1 SECONDS (25.2-36.5); INR 1.03 (0.83-1.09); PROTHROMBIN TIME (PATIENT) 11.9 SEC (9.7-13.0)
[2023-08-10 19:04] LABS: POTASSIUM 4.3 mmol/L (3.5-5.1)
[2023-08-10 19:06] LABS: CALCIUM 8.8 mg/dL (8.5-10.1)
[2023-08-10 19:07] LABS: BLOOD UREA NITROGEN 25.5 mg/dL (7-18); MAGNESIUM 2.1 mg/dL (1.8-2.4)
[2023-08-10 19:10] LABS: CREATININE 0.5 mg/dL (0.55-1.3); PHOSPHOROUS 3.8 mg/dL (2.5-4.9)
[2023-08-10 19:11] LABS: BILIRUBIN,TOTAL 0.2 mg/dL (0.2-1); TOT PROT 6.1 g/dl (6.4-8.2)
[2023-08-10] MEDS: SODIUM CHLORIDE 0.9% 500 ML INFUS.BAG IV ONE (19:33)
[2023-08-10 19:44] VITALS: RESP 19
[2023-08-10 22:44] VITALS: BP 149/83; PULSE 77
== END 2023-08-10 23:28 ==
LOC: JER 15:12
DX: R11.2 Nausea with vomiting, unspecified (principal); R10.9 Unspecified abdominal pain; I10 Essential (primary) hypertension; R55 Syncope and collapse
CPT/HCPCS: 36415; 70450-TC; 71045-TC-FY; 80053; 83735; 84100; 84484; 85025; 85610; 85730; 93005; 93010; 99285-25

== ENCOUNTER 2024-06-29 18:19 | Emergency (ER) | payer OTHER, MEDICARE ==
[2024-06-29 18:43] VITALS: TEMP 97.9; BMI 27.3
[2024-06-29 19:21] LABS: BASO % 0.7 % (0-2.0); EOS % 2.3 % (0-4.5); HEMATOCRIT 42.7 % (32.4-45.2); HEMOGLOBIN 14.1 GM/dL (10.7-15.3); LYMPH % 26.5 % (8-40); MCH 28.8 pg (25.7-33.7); MCHC 32.9 g/dl (32.0-36.0); MEAN CELL VOLUME 87.4 fl (80-96); MONO % 9.9 % (3.8-10.2); NEUT % 60.6 % (42.8-82.8); RBC 4.89 M/mm3 (3.60-5.2); RDW 14.5 % (11.6-15.6); WHITE BLOOD COUNT 7.4 K/mm3 (4.0-10.0)
[2024-06-29 19:39] LABS: POTASSIUM 5.7 mmol/L (3.5-5.1)
[2024-06-29 19:41] LABS: ALBUMIN 3.3 g/dl (3.4-5.0); BLOOD UREA NITROGEN 17.5 mg/dL (7-18); CALCIUM 9.5 mg/dL (8.5-10.1); MAGNESIUM 2.1 mg/dL (1.8-2.4)
[2024-06-29 19:45] LABS: CREATININE 0.6 mg/dL (0.55-1.3)
[2024-06-29 19:46] LABS: BILIRUBIN,TOTAL 0.4 mg/dL (0.2-1)
[2024-06-29 20:14] VITALS: RESP 18
[2024-06-29 20:37] LABS: MEAN PLT VOLUME 9.7 fl (7.5-11.1); PLATELET COUNT 255 10^3/uL (134-434)
[2024-06-29 22:16] LABS: PH,URINE 5.5 (5.0-8.0); URINE APPEARANCE CLEAR; URINE BILIRUBIN NEGATIVE (NEGATIVE); URINE COLOR YELLOW; URINE GLUCOSE (UA) NEGATIVE (NEGATIVE); URINE KETONE NEGATIVE (NEGATIVE); URINE LEUK ESTERASE NEGATIVE (NEGATIVE); URINE NITRITE NEGATIVE (NEGATIVE); URINE PROTEIN NEGATIVE (NEGATIVE); URINE UROBILINOGEN 0.2 mg/dL (0.2-1.0)
[2024-06-29 23:28] VITALS: BP 159/80; PULSE 65
[2024-06-29] MEDS: AZITHROMYCIN IVPB 500 MG in DEXTROSE 5%-WATER - 250 ML IVPB ONE (23:38)
[2024-06-29] MEDS ORDERED: AZITHROMYCIN 500 MG TABLET ONE (23:39)
[2024-06-29] MEDS: AZITHROMYCIN 250 MG TABLET PO ONE (23:42)
== END 2024-06-30 05:29 | disposition home or self-care (01) ==
LOC: JER 18:19
DX: F03.90 Unspecified dementia, unspecified severity, without behavioral disturbance, psychotic disturbance, mood disturbance, and anxiety (principal); R41.0 Disorientation, unspecified; Z20.822 Contact with and (suspected) exposure to COVID-19
CPT/HCPCS: 0241U-QW; 36415; 70450-TC; 71045-TC-FY; 72125-TC; 80053; 80164; 81003; 83605; 83735; 84484; 85025; 87086; 93005; 93010; 99285-25

== ENCOUNTER 2024-10-13 20:10 | Emergency (ER) | payer OTHER, MEDICARE ==
[2024-10-13 20:16] VITALS: TEMP 97.8; BMI 28.3
[2024-10-13 21:19] LABS: ABSOLUTE IMMATURE GRANULOCYTES 0.06 x10^3/uL (0.0-0.031); BASOPHILS # 0.06 x10^3/uL (0.01-0.08); EOSINOPHIL % 0.7 % (0.7-5.8); EOSINOPHILS # 0.09 x10^3/uL (0.04-0.36); HEMOGLOBIN 13.8 g/dL (11.2-15.7); MCHC 31.4 g/dl (32.2-35.5); MEAN CELL VOLUME 92.4 fl (79.4-94.8); MONOCYTE # 0.92 x10^3/uL (0.24-0.86); MONOCYTE % 7.6 % (4.7-12.5); PLATELET COUNT 239 x10^3/uL (182-369); RDW 13.6 % (12.5-17.0)
[2024-10-13 21:46] LABS: ACTIVATED PTT 29.2 SECONDS (25.2-36.5); INR 1.07 (0.83-1.09); POTASSIUM 4.6 mmol/L (3.5-5.1); PROTHROMBIN TIME (PATIENT) 11.8 SEC (9.7-13.0)
[2024-10-13 21:48] LABS: ALBUMIN 3.4 g/dl (3.4-5.0); BLOOD UREA NITROGEN 16.7 mg/dL (7-18); CALCIUM 9.6 mg/dL (8.5-10.1); MAGNESIUM 2.4 mg/dL (1.8-2.4)
[2024-10-13 21:52] LABS: CREATININE 0.8 mg/dL (0.55-1.3)
[2024-10-13 21:53] LABS: BILIRUBIN,TOTAL 0.3 mg/dL (0.2-1); TOT PROT 6.9 g/dl (6.4-8.2)
[2024-10-13] MEDS: FOLIC ACID INJECTION - 1 MG, THIAMINE HCL 100 MG, MULTIVIT INJECTION ADULT 10 ML in SOD... IVPB ONE (22:32)
[2024-10-14 01:45] LABS: EPI CELLS 21 /uL (0-25.1); HYALINE CASTS 2 /uL (0-3.1); PH,URINE 5.5 (5.0-8.0); URINE APPEARANCE CLEAR; URINE BACTERIA 2 /uL (0-1359); URINE BILIRUBIN NEGATIVE (NEGATIVE); URINE COLOR YELLOW; URINE GLUCOSE (UA) NEGATIVE (NEGATIVE); URINE KETONE TRACE (NEGATIVE); URINE LEUK ESTERASE NEGATIVE (NEGATIVE); URINE NITRITE NEGATIVE (NEGATIVE); URINE PROTEIN 1+ (NEGATIVE); URINE RBC 22 /uL (0-23.9); URINE UROBILINOGEN 0.2 mg/dL (0.2-1.0); URINE WBC 24 /uL (0-25.8)
[2024-10-14 05:17] VITALS: BP 175/85; PULSE 83; RESP 18
== END 2024-10-14 05:22 | disposition home or self-care (01) ==
LOC: JER 20:10
PROC: 3E0337Z Introduction of Electrolytic and Water Balance Substance into Peripheral Vein, Percutaneous Approach (ICD-10-PCS; principal; 2024-10-13)
PROC: 3E0337Z Introduction of Electrolytic and Water Balance Substance into Peripheral Vein, Percutaneous Approach (ICD-10-PCS; 2024-10-13)
PROC: 3E0337Z Introduction of Electrolytic and Water Balance Substance into Peripheral Vein, Percutaneous Approach (ICD-10-PCS; 2024-10-13)
PROC: 3E0337Z Introduction of Electrolytic and Water Balance Substance into Peripheral Vein, Percutaneous Approach (ICD-10-PCS; 2024-10-13)
PROC: 3E0337Z Introduction of Electrolytic and Water Balance Substance into Peripheral Vein, Percutaneous Approach (ICD-10-PCS; 2024-10-13)
PROC: 3E0337Z Introduction of Electrolytic and Water Balance Substance into Peripheral Vein, Percutaneous Approach (ICD-10-PCS; 2024-10-13)
PROC: 3E0337Z Introduction of Electrolytic and Water Balance Substance into Peripheral Vein, Percutaneous Approach (ICD-10-PCS; 2024-10-13)
DX: R42 Dizziness and giddiness (principal); R53.1 Weakness
CPT/HCPCS: 0241U-QW; 36415; 71045-TC-FY; 80053; 81003; 83735; 84484; 85025; 85610; 85730; 87086; 93005; 93010; 99285-25